=== PATIENT | female | born 2000 | race Two or more races ===

== ENCOUNTER → 2025-03-29 | Emergency (ER) | payer BC ==
[~2025-03-29] VITALS: Ht 170.2 cm; Wt 71.2 kg
[~2025-03-29] MED LIST: NAPR-1009 PO
[2025-03-29 21:10] VITALS: TEMP 97.8
[2025-03-29] MEDS: IBUPROFEN 600 MG TABLET PO ONE (21:10)
[2025-03-29 23:11] VITALS: BP 130/79; O2SAT 99
== END | disposition home or self-care (01) ==
LOC: ER 19:40
DX: S80.02XA Contusion of left knee, initial encounter (principal); S93.402A Sprain of unspecified ligament of left ankle, initial encounter; F17.290 Nicotine dependence, other tobacco product, uncomplicated; F41.9 Anxiety disorder, unspecified; F32.A Depression, unspecified; Z88.8 Allergy status to other drugs, medicaments and biological substances; Z91.012 Allergy to eggs; Z86.69 Personal history of other diseases of the nervous system and sense organs; W01.0XXA Fall on same level from slipping, tripping and stumbling without subsequent striking against object, initial encounter; Y93.89 Activity, other specified; Y92.89 Other specified places as the place of occurrence of the external cause; Y99.8 Other external cause status
CPT/HCPCS: 73560; 73600; A4606; A4663

== ENCOUNTER 2025-10-10 17:53 | Emergency (ER) | payer BC ==
[~2025-10-10] VITALS: Ht 162.6 cm; Wt 47.6 kg
[~2025-10-10 17:53] MED LIST changes: +DIPH25CA83 PO; +PRED50TA PO
[2025-10-10 18:02] VITALS: BP 120/61
[2025-10-10 21:27] VITALS: BP 125/65; O2SAT 99
== END 2025-10-10 19:43 ==
LOC: ER 17:57
DX: F41.9 Anxiety disorder, unspecified (principal); F17.290 Nicotine dependence, other tobacco product, uncomplicated; Z79.52 Long term (current) use of systemic steroids; Z91.0120 Allergy to eggs, unspecified
CPT/HCPCS: A4606; A4663